=== PATIENT | female | born 1945 | race Caucasian/White ===

== ENCOUNTER 2017-05-28 19:42 | Observation (INO) | payer MEDICARE ==
[2017-05-28] MEDS ORDERED: MORPHINE SULFATE 4 MG/ML SYRINGE IV STA (20:20)
[2017-05-28] MEDS ORDERED: SODIUM CHLORIDE 0.9% 1,000 ML IV STA (20:20)
[2017-05-28] MEDS ORDERED: NITROGLYCERIN OINT 1 INCH/GM PACKET TOPICAL STA (20:20)
[2017-05-28] MEDS ORDERED: ONDANSETRON 4 MG/2 ML VIAL IVP STA (20:20)
[2017-05-28] MEDS ORDERED: HYDROmorphone 1 MG/ML 1 ML SYRINGE IVP STA (20:21)
[2017-05-28] MEDS ORDERED: MAG HYDROX/AL HYDROX/SIMETH 30 ML, HYOSCYAMINE ELIXIR 10 ML, CIMETIDINE HCL 300 MG, LID... PO STA ×4 (20:22)
[2017-05-28] MEDS ORDERED: PANTOPRAZOLE 40 MG/10 ML VIAL IVP STA (20:29)
[2017-05-28 20:30] LABS: Basophils # (A) 0.1 k/uL (0-0.2); Basophils % (A) 1 %; CH 29.4; CHCM 33.2; Eosinophils # (A) 0.1 k/uL (0-0.7); Eosinophils % (A) 2 %; HCT 40.3 % (34.0-46.0); HDW 2.37; HGB 13.6 gm/dL (11.4-16.0); Luc # (Auto) 0.16; Luc % (Auto) 3; Lymphocytes # (A) 0.8 k/uL (1.0-4.8); Lymphocytes % (A) 13 %; MCHC 33.8 g/dL (31.0-37.0); MCV 88.8 fL (80.0-100.0); Mean Platelet Volume 6.9; Monocytes # (A) 0.6 k/uL (0-1.0); Monocytes % (A) 10 %; Neutrophils # (A) 4.1 k/uL (1.3-7.7); Neutrophils % (A) 71 %; RBC 4.53 m/uL (3.80-5.40); RDW 14.1 % (11.5-15.5); WBC 5.7 k/uL (3.8-10.6); WBC (Perox) 5.87
[2017-05-28 20:40] LABS: Partial Thromboplastin Time 23.8 sec (22.0-30.0); Prothrombin Time 10.5 sec (9.0-12.0)
[2017-05-28 20:41] LABS: ALT 45 U/L (9-52); AST 37 U/L (14-36); Alkaline Phosphatase 80 U/L (38-126); Amylase 37 U/L (30-110); Anion Gap 10 mmol/L; Blood Urea Nitrogen 13 mg/dL (7-17); Calcium 9.3 mg/dL (8.4-10.2); Carbon Dioxide 24 mmol/L (22-30); Chloride 101 mmol/L (98-107); Glucose 108 mg/dL (74-99); Magnesium 1.6 mg/dL (1.6-2.3); Non-African American GFR(MDRD) >60 (>60 ml/min/1.73 sqM); Potassium 4.2 mmol/L (3.5-5.1); Sodium 135 mmol/L (137-145); Total Bilirubin 0.5 mg/dL (0.2-1.3); Total Protein 6.8 g/dL (6.3-8.2)
[2017-05-28] MEDS: ASPIRIN 81 MG PO STA ×2 (20:47→21:13)
[2017-05-28 20:52] LABS: Creatine Kinase 68 U/L (30-135)
--- NOTE | 2017-05-28 20:53 | XR ---
EXAMINATION TYPE: XR chest 2V DATE OF EXAM: 05/28/2017 COMPARISON: NONE HISTORY: Chest pain TECHNIQUE: Frontal and lateral views of the chest are obtained. FINDINGS: Heart and mediastinum are normal. There are small linear density at the left lung base. Th ere is no pleural effusion. There is no heart failure. Bony thorax is intact. IMPRESSION: Small area of subsegmental atelectasis at the left lung base.
--- NOTE | 2017-05-28 20:54 | XR ---
EXAMINATION TYPE: XR abdomen 2V DATE OF EXAM: 05/28/2017 COMPARISON: NONE HISTORY: Chest pain TECHNIQUE: 3 views FINDINGS: There is no sign of intestinal obstruction or pneumoperitoneum. Fecal pattern is normal. Th ere are clips from cholecystectomy. Lung bases are clear. There are no pathologic calcifications over the kidneys. IMPRESSION: Nonacute abdomen.
[2017-05-28 21:05] LABS: Creatine Kinase MB 0.5 ng/mL (0.0-2.4); Troponin I <0.012 ng/mL (0.000-0.034)
[2017-05-28] MEDS ORDERED: HEPARIN SODIUM,PORCINE 5,000 UNIT/ML 1 ML VIAL IV ONE (21:46)
--- NOTE | 2017-05-28 21:46 | ED ---
Chest Pain HPI - General Chief Complaint: Chest Pain Stated Complaint: chest pain Time Seen by Provider: 05/28/17 20:06 Source: patient Mode of arrival: wheelchair Limitations: no limitations - History of Present Illness Initial Comments: This 71-year-old white female presents with a complaint of some lower chest/ upper abdominal pain which is been present over the last 2 days. She describes it as a constant type of pain. It is a sharp pressure type pain. Is not pleuritic in nature. She does relate a degree of a history of some gas esophageal reflux but states that she has not been taking her Nexium for quite some time. She did start taking it again over the last 2 days. She denies any relief of symptoms. She denies any known history of coronary artery disease. She has a remote history of a negative stress test but has never had a heart catheterization. She denies any shortness of breath or diaphoresis. She is been able to eat without any worsening of symptoms. She denies any previous similar incidents. No other complaints or modifying factors. - Related Data Home Medications Medication Instructions Recorded Confirmed Aspirin EC [Ecotrin Low Dose] 81 mg PO DAILY 05/28/17 05/28/17 Multivitamins, Thera [Multivitamin 1 tab PO DAILY 05/28/17 05/28/17 (formulary)] Simvastatin [Zocor] 20 mg PO HS 05/28/17 05/28/17 Allergies Allergy/AdvReac Type Severity Reaction Status Date / Time No Known Allergies Allergy Verified 05/28/17 20:15 Review of Systems ROS Statement: Those systems with pertinent positive or pertinent negative responses have been documented in the HPI. ROS Other: All systems not noted in ROS Statement are negative. Past Medical History Past Medical History: GERD/Reflux, Hyperlipidemia Additional Past Medical History / Comment(s): retinal occlusion. History of Any Multi-Drug Resistant Organisms: None Reported Past Surgical History: Appendectomy, Cholecystectomy, Hysterectomy, Tonsillectomy Past Psychological History: No Psychological Hx Reported Smoking Status: Never smoker Past Alcohol Use History: None Reported Past Drug Use History: None Reported General Exam - General Exam Comments Initial Comments: GENERAL: The patient is well nourished and well hydrated. VITAL SIGNS: Heart rate, blood pressure, respiratory rate reviewed as recorded in nurse's notes. EYES: Pupils are round and reactive. Extraocular movements are intact. No conjunctival / lid redness or swelling. ENT: No external evidence of injury, swelling, or ecchymosis. Airway is patent. Throat is clear. NECK: Nontender. No swelling or evidence of injury. No subcutaneous emphysema. Trachea is midline. No thyroid mass. HEART: Regular rate and rhythm. Good peripheral pulses. LUNGS/CHEST: Breath sounds clear and equal bilaterally. No rales, rhonchi, or wheezes. No ecchymosis, subcutaneous emphysema, or tenderness. ABDOMEN: There is mild tenderness in the midepigastric region. No palpable masses or organomegaly. No peritoneal signs. No abdominal wall swelling or ecchymosis. EXTREMITIES: No extremity tenderness. Normal muscle tone and function. No thoracolumbar tenderness. NEUROLOGIC: Sensation is grossly intact. Cranial nerve exam reveals face is symmetrical, tongue is midline, speech is clear. SKIN: No abrasions or ecchymosis is noted. No induration or masses noted. PSYCHIATRIC: Alert and oriented. Appropriate behavior and judgment. Limitations: no limitations Course Vital Signs 05/28/17 05/28/17 19:44 21:18 Temperature 100.2 F H Pulse Rate 88 90 Respiratory 16 16 Rate Blood Pressure 143/69 137/67 O2 Sat by Pulse 98 94 L Oximetry Chest Pain MDM - MDM The patient was seen and examined. All diagnostics were reviewed. She is placed on a cardiac cath rn no ectopy is identified. The EKG shows a normal sinus rhythm at a rate of 88. There is no acute ST-T wave changes noted. The KS interval is 174, QRS duration is 72, and QTC intervals 442. The cardiac and abdominal laboratory analysis is also to within normal limits. The acute abdominal series and chest x-ray does not show any acute abnormalities. There may be some slight atelectasis noted in the left base as per radiology. She does receive an aspirin as well as some Nitropaste, morphine, and a GI cocktail. She is feeling significantly improved on recheck. The possibility of acute coronary syndrome she'll is possible. The possibility of gastritis/ peptic ulcer disease/gas esophageal reflux certainly is possible as well. Is felt as though she would require admission to the hospital to rule the possibility of acute coronary syndrome. She is agreeable. Case will be discussed with internal medicine shortly and she is noted to the hospital for further treatment. Disposition Clinical Impression: Chest pain, Unstable angina pectoris, Abdominal pain Disposition: ADMITTED IP TO THIS HOSP Condition: Good Time of Disposition: 21:46 Decision Date: 05/28/17 Decision Time: 21:46
[2017-05-28] MEDS ORDERED: HEPARIN SODIUM,PORCINE 25,000 UNIT in SODIUM CHLORIDE 0.9% 500 ML IV SCH (22:00)
[2017-05-29] MEDS: MORPHINE SULFATE 4 MG/ML SYRINGE IV PRN ×3 (00:02→08:37)
[2017-05-29] MEDS: NITROGLYCERIN OINT 1 INCH/GM PACKET TOPICAL SCH ×2 (00:07→08:37)
[2017-05-29 00:12] VITALS: RESP 18
[2017-05-29 00:38] VITALS: BMI 31.8
[2017-05-29 03:40] LABS: Cholesterol 142 mg/dL (<200); HDL Cholesterol 51 mg/dL (40-60)
[2017-05-29 03:49] LABS: Creatine Kinase 57 U/L (30-135)
[2017-05-29 04:02] LABS: Creatine Kinase MB 0.4 ng/mL (0.0-2.4); Troponin I <0.012 ng/mL (0.000-0.034)
[2017-05-29] MEDS ORDERED: ASPIRIN 325 MG TAB PO SCH (09:00)
[2017-05-29] MEDS ORDERED: PANTOPRAZOLE 40 MG/10 ML VIAL IVP SCH (09:00)
[2017-05-29 09:34] LABS: Creatine Kinase 49 U/L (30-135)
[2017-05-29 09:44] LABS: Creatine Kinase MB 0.4 ng/mL (0.0-2.4); Troponin I <0.012 ng/mL (0.000-0.034)
[2017-05-29] MEDS ORDERED: FAMOTIDINE 20 MG TAB PO SCH (10:45)
[2017-05-29 11:13] LABS: Amylase <30 U/L (30-110)
--- NOTE | 2017-05-29 11:54 | ECHOF ---
Referral Reason:cp MEASUREMENTS -------- HEIGHT: 162.6 cm WEIGHT: 83.5 kg BP: 120/54 RVIDd: 2.6 cm (< 3.3) IVSd: 1.2 cm (0.6 - 1.1) LVIDd: 3.7 cm (3.9 - 5.3) LVPWd: 1.2 cm (0.6 - 1.1) IVSs: 1.2 cm LVIDs: 3.3 cm LVPWs: 1.2 cm LA Diam: 3.1 cm (2.7 - 3.8) LAESV Index (A-L): 15.69 ml/m Ao Diam: 3.0 cm (2.0 - 3.7) AV Cusp: 1.7 cm (1.5 - 2.6) LA Diam: 3.3 cm (2.7 - 3.8) MV EXCURSION: 20.586 mm (> 18.000) MV EF SLOPE: 68 mm/s (70 - 150) EPSS: 0.4 cm MV E Nate: 0.45 m/s MV DecT: 265 ms MV A Nate: 0.72 m/s MV E/A Ratio: 0.63 AR PHT: 650 ms RAP: 5.00 mmHg RVSP: 21.80 mmHg FINDINGS -------- Sinus rhythm. This was a technically adequate study. The left ventricular size is normal. There is mild concentric left ventricular hypertrophy. Overa ll left ventricular systolic function is normal with, an EF between 55 - 60 %. The right ventricle is normal in size. Normal LA size by volume 22+/-6 ml/m2. The right atrial size is normal. There is mild aortic valve sclerosis. There is mild aortic regurgitation. The mitral valve leaflets are mildly thickened. Mild mitral annular calcification present. There is trace mitral regurgitation. Mild tricuspid regurgitation present. There is no evidence of pulmonary hypertension. The right v entricular systolic pressure, as measured by Doppler, is 21.80mmHg. There is no pulmonic regurgitation present. The aortic root size is normal. There is no pericardial effusion. CONCLUSIONS -------- 1. The left ventricular size is normal. 2. There is mild concentric left ventricular hypertrophy. 3. Overall left ventricular systolic function is normal with, an EF between 55 - 60 %. 4. There is mild aortic valve sclerosis. 5. There is mild aortic regurgitation. 6. The mitral valve leaflets are mildly thickened. 7. Mild mitral annular calcification present. 8. There is trace mitral regurgitation. 9. Mild tricuspid regurgitation present. 10. There is no evidence of pulmonary hypertension. 11. The right ventricular systolic pressure, as measured by Doppler, is 21.80mmHg. 12. There is no pulmonic regurgitation present. 13. The aortic root size is normal. 14. There is no pericardial effusion. CMO: Violeta Reyes RDCS
[2017-05-29] MEDS ORDERED: MULTIVITAMINS, THERA 1 EACH TAB PO SCH (12:00)
[2017-05-29 12:11] VITALS: BP 107/53; PULSE 83; TEMP 98.7
[2017-05-29] MEDS ORDERED: SUCRALFATE 1 GM TAB PO SCH (12:30)
[2017-05-29] MEDS ORDERED: ATORVASTATIN 10 MG TAB PO SCH (21:00)
--- NOTE | 2017-05-30 13:53 | HP ---
HISTORY AND PHYSICAL CHIEF COMPLAINT: Chest pain. HISTORY OF PRESENT ILLNESS: This is the first known admission of this 71-year-old, G2, P2, A0 white female. She started to develop "indigestion," which she was fairly sure was related to eating. She had some difficulty controlling it and came to the emergency room. Her evaluation there was negative, but it was felt that she should be observed to rule out cardiac issues. She has had a long-standing history of GERD. This chest pain was not associated with a pressure like sensation, squeezing, tightness, shortness of breath, nausea, diaphoresis, etc. There is no radiation of the pain. REVIEW OF SYSTEMS: Otherwise unremarkable. She has had no melena, diarrhea, hematochezia, hematemesis, jaundice, renal disease, diabetes, hypertension, etc. PAST MEDICAL HISTORY, FAMILY HISTORY, PERSONAL AND SOCIAL HISTORIES: Reveal that she is ALLERGIC TO ASPIRIN AND STATINS. Surgically she has had an appendectomy, cholecystectomy, tonsillectomy, hysterectomy. She has a negative family history for heart disease, and she does not smoke. PHYSICAL EXAMINATION: Blood pressure is 128/64 with a pulse of 73, respirations of 19. She is afebrile. In general she appeared to be well developed, well nourished, no acute distress. Skin color is normal. Skin is warm, dry. Lymph nodes not enlarged. Head, ears, eyes, nose, mouth, and throat were normal. Neck veins not distended. Thyroid not enlarged. Chest is clear. Cardiac exam is normal. Abdomen is soft, nontender except over the epigastrium where she was somewhat uncomfortable. Bowel sounds are present. Extremities normal. Neurological is intact. She is admitted to the hospital diagnoses: 1. Chest pain. 2. Gastroesophageal reflux disease. PLAN: 1. Bed rest. 2. IV fluids. 3. Serial EKGs and enzymes. MMODL / IJN: [id number] /
--- NOTE | 2017-05-30 16:23 | DS ---
DISCHARGE SUMMARY CHIEF COMPLAINT: Atypical chest pain. HISTORY OF PRESENT ILLNESS AND PHYSICAL EXAM: Details of this lady's history and physical can be found in the initial workup. LABORATORY STUDIES: While she was in a hospital she had laboratory studies, details which can be found in the laboratory section of her chart. COURSE IN HOSPITAL: After admission, she was placed in bedrest, started on intravenous fluids and she had serial EKGs and enzymes and they were normal. It was felt she could be discharged. She will follow up as an outpatient. FINAL DIAGNOSES: 1. Atypical chest pain. 2. Gastroesophageal reflux disease. OPERATIONS: None. CONSULTATION: None She is improved. MMODL / IJN: [id number] /
== END 2017-05-29 13:38 | disposition home or self-care (01) ==
LOC: EC 19:42 → 3OBS 21:50
PROVIDERS: ADMIT Family Medicine; ATTEND Family Medicine
DX: R07.89 Other chest pain (principal); K21.9 Gastro-esophageal reflux disease without esophagitis; E78.5 Hyperlipidemia, unspecified; Z79.82 Long term (current) use of aspirin; Z79.899 Other long term (current) drug therapy
CPT/HCPCS: 36415; 71020; 74020; 80053; 80061; 82150; 82550; 82553; 83690; 83735; 84484; 85025; 85049; 85610; 85730; 87040; 93005; 93306; 94760; 96361; 96365; 96366; 96375; 96376; 99285

== ENCOUNTER → 2017-06-06 | Outpatient (CLI) | payer MEDICARE ==
--- NOTE | 2017-06-06 16:03 | CT ---
EXAMINATION TYPE: CT abdomen pelvis wo/w con DATE OF EXAM: 06/06/2017 COMPARISON: NONE HISTORY: Right sided flank pain, abdominal pain CT DLP: 2293 mGycm CONTRAST: CT scan of the abdomen and pelvis is performed without and with Oral Contrast and without and with IV Contrast, patient injected with 100 mL of Omnipaque 300. FINDINGS: LUNG BASES-: No visible nodule. No infiltrate. LIVER/GB: Cholecystectomy clips are noted in place. 2 hepatic cysts are noted the largest within th e left hepatic lobe measures 1 cm. No space occupying hepatic lesion. Biliary tree is of normal luiza ivan. PANCREAS: No inflammation. No distinct mass. SPLEEN: No splenic enlargement. 8.5 mm splenic cyst noted. ADRENALS: No nodule. No thickening. KIDNEYS/BLADDER: No hydronephrosis. No nephrolithiasis. No disctinct renal mass. Urinary bladder g rossly unremarkable. BOWEL: Normal appendix. Normal bowel caliber. No inflammation. GENITAL ORGANS: No gross abnormality. LYMPH NODES: No greater than 1cm abdominal or pelvic lymph nodes are appreciated. AORTA: No significant abnormality. OSSEOUS STRUCTURES: Degenerative changes lumbar spine. OTHER: Fat-containing umbilical hernia noted. IMPRESSION: 1. No significant abnormality to account for the patient's symptoms.
== END | disposition home or self-care (01) ==
LOC: RADCTMAIN 13:41
PROVIDERS: ATTEND Internal Medicine
DX: R10.9 Unspecified abdominal pain (principal); R07.9 Chest pain, unspecified
CPT/HCPCS: 74178; Q9967

== ENCOUNTER → 2018-02-07 | Outpatient (CLI) | payer MEDICARE ==
--- NOTE | 2018-02-11 08:40 | MM ---
Reason for exam: screening (asymptomatic). Last mammogram was performed 1 year and 2 months ago. MG 3D Screen Mammo Imp/Cad Bilateral CC, MLO, and ID view(s) were taken. Prior study comparison: December 15, 2016, mammogram. November 05, 2015, mammogram. Bilateral breast prothesis. No significant changes when compared with prior studies. ASSESSMENT: Benign, BI-RAD 2 RECOMMENDATION: Routine screening mammogram of both breasts in 1 year.
== END | disposition home or self-care (01) ==
LOC: RADMAMWWP 09:21
PROVIDERS: ATTEND General Practice
DX: Z12.31 Encounter for screening mammogram for malignant neoplasm of breast (principal); Z98.82 Breast implant status
CPT/HCPCS: 77063; 77067

== ENCOUNTER → 2018-02-07 | Outpatient (CLI) | payer MEDICARE | END | disposition home or self-care (01) | LOC: LABWHC1 09:56 | PROVIDERS: ATTEND Dermatology | DX: L30.4 Erythema intertrigo (principal); L91.8 Other hypertrophic disorders of the skin; L82.0 Inflamed seborrheic keratosis; L02.821 Furuncle of head [any part, except face]; L65.9 Nonscarring hair loss, unspecified | CPT/HCPCS: 36415; 82306; 82652 ==

== ENCOUNTER → 2019-02-18 | Outpatient (CLI) | payer MEDICARE ==
--- NOTE | 2019-02-19 14:29 | MM ---
Reason for exam: screening (asymptomatic). Last mammogram was performed 1 year ago. Physical Findings: A clinical breast exam by your physician is recommended on an annual basis and results should be correlated with mammographic findings. MG 3D Screen Mammo Imp/Cad Bilateral CC, MLO, and ID view(s) were taken. Prior study comparison: February 07, 2018, bilateral MG 3d screen mammo imp/cad. December 15, 2016, mammogram. There are scattered fibroglandular densities. Bilateral prepectoral calcified silicone implants with contour defects/bulges. ASSESSMENT: Negative, BI-RAD 1 RECOMMENDATION: Routine screening mammogram of both breasts in 1 year. Calcified breast implants with budges. MRI could assess for rupture.
== END | disposition home or self-care (01) ==
LOC: RADMAMWWP 10:39
PROVIDERS: ATTEND General Practice
DX: Z12.31 Encounter for screening mammogram for malignant neoplasm of breast (principal); Z98.82 Breast implant status
CPT/HCPCS: 77063; 77067

== ENCOUNTER 2019-07-21 15:50 | Inpatient (IN) | payer MEDICARE ==
[2019-07-21] MEDS ORDERED: SODIUM CHLORIDE 0.9% 500 ML 500 ML IV STA (16:30)
--- NOTE | 2019-07-21 16:44 | ED ---
General Adult HPI - General Chief complaint: Neuro Symptoms/Deficit Stated complaint: Stroke Time Seen by Provider: 07/21/19 16:00 Source: patient, RN notes reviewed, old records reviewed Mode of arrival: wheelchair Limitations: no limitations - History of Present Illness Initial comments: This is a 73-year-old female who presents emergency Department complaining of some weakness in her right hand and inability to hold small objects. Patient states it started about 2:00 yesterday afternoon. Patient states she went to do some knitting was unable to hold her needles. Patient denies any headache patient denies any speech disturbance or visual disturbance. Patient denies any facial droop is noted. Patient denies chest pain palpitations difficulty breathing shortness of breath. Patient denies any lower extremity weakness or problems walking. Patient denies any left arm weakness or uncoordinated movement. Patient denies any injury. Patient denies any similar symptoms in the past. Patient denies any recent fever chills or cough. - Related Data Home Medications Medication Instructions Recorded Confirmed Simvastatin [Zocor] 20 mg PO HS 05/28/17 07/21/19 Levothyroxine Sodium [Synthroid] 25 mcg PO DAILY 07/21/19 07/21/19 Allergies Allergy/AdvReac Type Severity Reaction Status Date / Time No Known Allergies Allergy Verified 07/21/19 15:56 Review of Systems ROS Statement: Those systems with pertinent positive or pertinent negative responses have been documented in the HPI. ROS Other: All systems not noted in ROS Statement are negative. Past Medical History Past Medical History: GERD/Reflux, Hyperlipidemia Additional Past Medical History / Comment(s): retinal occlusion. History of Any Multi-Drug Resistant Organisms: None Reported Past Surgical History: Appendectomy, Cholecystectomy, Hysterectomy, Tonsillectomy Past Anesthesia/Blood Transfusion Reactions: No Reported Reaction Past Psychological History: No Psychological Hx Reported Smoking Status: Never smoker Past Alcohol Use History: None Reported Past Drug Use History: None Reported General Exam - General Exam Comments Initial Comments: GENERAL: Patient is well-developed and well-nourished. Patient is nontoxic and well- hydrated and is in mild distress. ENT: Neck is soft and supple. No significant lymphadenopathy is noted. Oropharynx is clear. Moist mucous membranes. Neck has full range of motion without álvaro citing any pain. EYES: The sclera were anicteric and conjunctiva were pink and moist. Extraocular movements were intact and pupils were equal round and reactive to light. Eyelids were unremarkable. PULMONARY: Unlabored respirations. Good breath sounds bilaterally. No audible rales rhonchi or wheezing was noted. CARDIOVASCULAR: There is a regular rate and rhythm without any murmurs gallops or rubs. ABDOMEN: Soft and nontender with normal bowel sounds. SKIN: Skin is clear with no lesions or rashes and otherwise unremarkable. NEUROLOGIC: Patient is alert and oriented x3. Cranial nerves II through XII are grossly intact. Motor and sensory are also intact. Normal speech, volume and content. Symmetrical smile. Patient's finger-nose testing of the right is off when compared to left. Patient also has finger drift on the right. MUSCULOSKELETAL: Normal extremities with adequate strength and full range of motion. LYMPHATICS: No significant lymphadenopathy is noted PSYCHIATRIC: Normal psychiatric evaluation. Limitations: no limitations Course Vital Signs 07/21/19 07/21/19 15:57 17:15 Temperature 97.9 F Pulse Rate 82 71 Respiratory 18 18 Rate Blood Pressure 152/79 132/74 O2 Sat by Pulse 100 100 Oximetry Medical Decision Making - Medical Decision Making EKG shows normal sinus rhythm at 73 bpm WI interval is 170 QRS is 70 QT interval 394 QTC is 434. Patient's EKG shows no ST segment elevation or depression or T wave abnormalities are noted. Chest x-ray shows no acute abnormality. I spoke with Dr. Alan he agreed to admit the patient admitted the patient and wrote admitting orders. I consult neurology CT shows a calcified mass in the right cerebellum consistent with meningioma - Lab Data Result diagrams: 07/21/19 16:15 07/21/19 16:15 Lab Results 07/21/19 07/21/19 07/21/19 Range/Units 16:15 16:15 16:15 WBC 6.6 (3.8-10.6) k/uL RBC 4.31 (3.80-5.40) m/uL Hgb 13.3 (11.4-16.0) gm/dL Hct 39.5 (34.0-46.0) % MCV 91.6 (80.0-100.0) fL MCH 30.9 (25.0-35.0) pg MCHC 33.7 (31.0-37.0) g/dL RDW 12.3 (11.5-15.5) % Plt Count 285 (150-450) k/uL Neutrophils % 64 % Lymphocytes % 26 % Monocytes % 6 % Eosinophils % 2 % Basophils % 1 % Neutrophils # 4.2 (1.3-7.7) k/uL Lymphocytes # 1.7 (1.0-4.8) k/uL Monocytes # 0.4 (0-1.0) k/uL Eosinophils # 0.1 (0-0.7) k/uL Basophils # 0.1 (0-0.2) k/uL PT 9.5 (9.0-12.0) sec INR 0.9 (<1.2) APTT 24.0 (22.0-30.0) sec Sodium 141 (137-145) mmol/L Potassium 4.3 (3.5-5.1) mmol/L Chloride 106 (98-107) mmol/L Carbon Dioxide 29 (22-30) mmol/L Anion Gap 6 mmol/L BUN 18 H (7-17) mg/dL Creatinine 0.80 (0.52-1.04) mg/dL Est GFR (CKD-EPI)AfAm 84 (>60 ml/min/1.73 sqM) Est GFR (CKD-EPI)NonAf 73 (>60 ml/min/1.73 sqM) Glucose 80 (74-99) mg/dL Calcium 9.3 (8.4-10.2) mg/dL Total Bilirubin 0.3 (0.2-1.3) mg/dL AST 26 (14-36) U/L ALT 19 (4-34) U/L Alkaline Phosphatase 71 (38-126) U/L Total Protein 7.1 (6.3-8.2) g/dL Albumin 4.2 (3.5-5.0) g/dL Disposition Clinical Impression: Cerebrovascular accident (CVA) Disposition: ADMITTED IP TO THIS HOSP Referrals: Marilin Funez MD [REFERRING] - 1-2 days Time of Disposition: 17:42
[2019-07-21 17:01] LABS: Basophils # (A) 0.1 k/uL (0-0.2); Basophils % (A) 1 %; Eosinophils # (A) 0.1 k/uL (0-0.7); Eosinophils % (A) 2 %; HCT 39.5 % (34.0-46.0); HGB 13.3 gm/dL (11.4-16.0); Lymphocytes # (A) 1.7 k/uL (1.0-4.8); Lymphocytes % (A) 26 %; MCH 30.9 pg (25.0-35.0); MCHC 33.7 g/dL (31.0-37.0); MCV 91.6 fL (80.0-100.0); Mean Platelet Volume 7.3; Monocytes # (A) 0.4 k/uL (0-1.0); Monocytes % (A) 6 %; Neutrophils # (A) 4.2 k/uL (1.3-7.7); Neutrophils % (A) 64 %; Platelet Count 285 k/uL (150-450); RBC 4.31 m/uL (3.80-5.40); RDW 12.3 % (11.5-15.5); WBC 6.6 k/uL (3.8-10.6)
[2019-07-21 17:12] LABS: INR 0.9 (<1.2); Prothrombin Time 9.5 sec (9.0-12.0)
[2019-07-21 17:14] LABS: Albumin 4.2 g/dL (3.5-5.0); Calcium 9.3 mg/dL (8.4-10.2); Potassium 4.3 mmol/L (3.5-5.1); Total Bilirubin 0.3 mg/dL (0.2-1.3); Total Protein 7.1 g/dL (6.3-8.2)
--- NOTE | 2019-07-21 17:26 | CT ---
EXAMINATION TYPE: CT brain wo con DATE OF EXAM: 07/21/2019 COMPARISON: None HISTORY: Left sided weakness. CT DLP: 1118.4 mGycm Automated exposure control for dose reduction was used. Ventricles have normal size. There is no midline shift. There is no sign of intracranial hemorrhage. There is a calcific extra-axial mass in the posterior fossa on the right side. Mass measures 2.5 cm a nd has broad attachment to the cerebellar tentorium on the inferior surface. There is no evidence of any significant surrounding edema. Calvarium is intact. IMPRESSION: Extra-axial calcifying mass arising from the right cerebellar tentorium consistent with a meningioma. No significant mass effect. There is mild cerebral atrophy appropriate for age.
--- NOTE | 2019-07-21 17:28 | XR ---
EXAMINATION TYPE: XR chest 2V DATE OF EXAM: 07/21/2019 COMPARISON: 05/28/2017 HISTORY: Altered mental status. Right-sided weakness TECHNIQUE: FINDINGS: Heart and mediastinum are normal. Lungs are clear. Diaphragm is normal. Bony thorax is inta ct. IMPRESSION: Normal chest. There is clearing of focal atelectasis left lower lung field compared to ol d exam.
[2019-07-21] MEDS ORDERED: ASPIRIN 325 MG TAB PO STA (17:46)
--- NOTE | 2019-07-21 20:51 | US ---
EXAMINATION TYPE: US carotid duplex BILAT DATE OF EXAM: 07/21/2019 COMPARISON: NONE CLINICAL HISTORY: Stenosis. Stenosis per order. Right-sided weakness x 2 days. EXAM MEASUREMENTS: RIGHT: Peak Systolic Velocity (PSV) cm/sec ----- Right CCA: 64.4 ----- Right ICA: 69.9 ----- Right ECA: 69.9 ICA/CCA ratio: 1.1 RIGHT: End Diastole cm/sec ----- Right CCA: 17.1 ----- Right ICA: 24.8 ----- Right ECA: 6.2 LEFT: Peak Systolic Velocity (PSV) cm/sec ----- Left CCA: 63.3 ----- Left ICA: 83.6 ----- Left ECA: 71.0 ICA/CCA ratio: 1.3 LEFT: End Diastole cm/sec ----- Left CCA: 17.1 ----- Left ICA: 28.0 ----- Left ECA: 10.6 VERTEBRALS (direction of flow): Right Vertebral: Antegrade Left Vertebral: Antegrade Rhythm: Normal Intimal thickening seen bilateral carotid arteries. Left ICA dives quickly posterior. No elevated arturo ocities obtained. *Incidental findings: Mixed area with vascularity seen right thyroid lobe measurin.4 x 1.0 x 0.8 cm. Mixed area with peripheral vascularity seen left thyroid lobe measurin.1 x 0.8 x 0.8 cm. IMPRESSION: There is antegrade flow in the vertebral arteries. The images and measurements suggest less than 20% stenosis in both internal carotid arteries. Bilateral sharply marginated thyroid nodules consistent w ith benign disease. Criteria for Assigning % of Stenosis / Diameter reduction (Estimation based on the indirect measurements of the internal carotid artery velocities (ICA PSV). 1. Normal (no stenosis)=ICA PSV < 125 cm/s: ratio < 2.0: ICA EDV<40 cm/s. 2. Less than 50% stenosis=ICA PSV < 125 cm/s: ratio < 2.0: ICA EDV<40 cm/s. 3. 50 to 69% stenosis=ICA PSV of 125 to 230 cm/s: ration 2.0 ? 4.0: ICA EDV 40-100 cm/s. 4. Greater than 70% stenosis to near occlusion= ICA PSV > 230 cm/s: ratio > 4.0: ICA EDV > 100 cm/s. 5. Near occlusion= ICA PSV velocities may be low or undetectable: variable ratio and ICA EDV. 6. Total occlusion=unable to detect flow.
[2019-07-22 07:05] LABS: Cholesterol 165 mg/dL (<200); HDL Cholesterol 60 mg/dL (40-60); LDL Cholesterol,Calculated 94 mg/dL (0-99); Triglycerides 56 mg/dL (<150)
[2019-07-22] MEDS: ASPIRIN 325 MG TAB PO SCH (09:05)
[2019-07-22] MEDS: LEVOTHYROXINE 25 MCG TAB PO SCH (09:50)
--- NOTE | 2019-07-22 13:17 | P.CNNES ---
History of Present Illness Consult date: 07/22/19 Requesting physician: Leonides Beltran Reason for Consult: CVA History of Present Illness: Patient is a 73-year-old right-handed female, who states that she was playing keyboard on 04/19/2020, when around 2:58 PM, she noticed that she couldn't use her right hand. She denied any problem with balance, slurred spe ech facial droop. She went to see her primary physician in the morning, who recommended her to go to ER and she arrived at [facility] at 3:50 PM. Patient was noted to have right arm weakness. Patient was not a candidate for TPA, as she came 24 hours after onset of symptoms. Patient underwent computed tomography scan of the head, which revealed extra-axial calcifying mask arising from the right cerebellar tentorium, consistent with a meningioma. No significant mass effect. There is mild cerebral atrophy appropriate for age. Chest x-ray was normal. There is clearing of focal atelectasis left lower lung field compared to old exam. EKG showed normal sinus rhythm. Carotid Doppler showed antegrade flow in the vertebral arteries. The images in measurement suggest less than 20% stenosis in both ICA. Antegrade flow in both vertebral arteries. Patient's blood test was reviewed. Liver panel is normal, total cholesterol is 165, LDL 94, HDL 60 and triglycerides 56. Patient used to take aspirin 81 mg daily for number of years. She just quit taking aspirin 2 months ago. She does take simvastatin for hyperlipidemia. Patient denies tobacco use. She has hypertension but no diabetes. Denies tobacco use. Denies any history of strokes TIAs. Patient does not know any previous history of brain tumor. Review of Systems Completely unremarkable except for right arm/hand weakness. Past Medical History Past Medical History: GERD/Reflux, Hyperlipidemia, Thyroid Disorder Additional Past Medical History / Comment(s): retinal occlusion. History of Any Multi-Drug Resistant Organisms: None Reported Past Surgical History: Appendectomy, Cholecystectomy, Hysterectomy, Tonsillectomy Past Anesthesia/Blood Transfusion Reactions: No Reported Reaction Past Psychological History: No Psychological Hx Reported Smoking Status: Never smoker Past Alcohol Use History: None Reported Additional Past Alcohol Use History / Comment(s): Patient has been a lifelong nonsmoker, no illicit drug use, occasional alcohol use. Past Drug Use History: None Reported - Past Family History Mother Family Medical History: Cancer Additional Family Medical History / Comment(s): Mother from Pancreatic Cancer Father Additional Family Medical History / Comment(s): Patient does not know her biological father. Brother(s) Additional Family Medical History / Comment(s): Patient has 2 brothers, one has history of CVA, second brother has no major medical problems. Sister(s) Additional Family Medical History / Comment(s): Patient has 1 sister with no major medical problems. Patient has one daughter with thoracic aortic aneurysm, patient has one son with no major medical problems. Medications and Allergies Home Medications Medication Instructions Recorded Confirmed Type Simvastatin [Zocor] 20 mg PO HS 05/28/17 07/21/19 History Levothyroxine Sodium [Synthroid] 25 mcg PO DAILY 07/21/19 07/21/19 History Allergies Allergy/AdvReac Type Severity Reaction Status Date / Time No Known Allergies Allergy Verified 07/21/19 15:56 Physical Examination - Vital Signs Vital Signs: Vital Signs Temp Pulse Pulse Resp BP BP Pulse Ox 07/22/19 11:36 97.1 F L 80 18 145/76 99 07/22/19 11:19 85 18 07/22/19 08:00 98.1 F 85 18 115/78 99 07/22/19 01:10 71 15 119/62 96 07/21/19 20:00 82 18 123/78 100 07/21/19 18:30 70 18 126/70 98 07/21/19 17:15 71 18 132/74 100 07/21/19 15:57 97.9 F 82 18 152/79 100 Intake and Output 07/21/19 07/22/19 07/22/19 22:59 06:59 14:59 Intake Total 720 Output Total 350 Balance 370 Intake: Intake, IV Titration 500 Amount Sodium Chloride 0.9% 500 500 ml 500 ml @ 999 mls/hr IV .Q31M STA Rx#:[id number] Oral 220 Output: Urine 350 Other: Voiding Method Toilet # Voids 1 Weight 72.575 kg On examination patient is an elderly female, very pleasant, in no acute distress. Patient is alert and awake oriented to time place and person. Speech and language functions are normal. Attention and concentration fund of knowledge is adequate. On cranial nerve examination pupils are round and reacting to light, visual swanson are full on confrontation, extra ocular muscles intact with no nystagmus. Face is symmetric and tongue protrudes slightly to the right. Palatal elevation and sensation normal. On muscle strength testing patient has right pronator drift. The strength is normal in the deltoid biceps and triceps. However her ripper operator is 4+, interossei 4-, finger extension also weak 4+ only on the right side. The strength is normal in the left leg and bilateral lower limbs. Sensations are equal to touch with no loss of sensation on double simultaneous dissemination. Reflexes are 1+ to 2 and plantars downgoing. Tone and bulk of muscles normal. Patient is ataxic for [id number] testing on the right. Rapid finger tapping is slow on the right. Gait deferred. No obvious bruit or murmur. Peripheral pulses present abdomen soft nontender. Results - Laboratory Findings CBC and BMP: 07/21/19 16:15 07/21/19 16:15 Abnormal Lab Findings: Abnormal Labs 07/21/19 16:15 BUN 18 H Assessment and Plan Assessment: * 73-year-old female admitted with right arm weakness and ataxia, probably due to acute ischemic stroke. * Abnormal brain CAT scan, with evidence of right posterior fossa tentorium based calcified mass, measuring 2.6 cm, suggestive of possible meningioma. Uncertain if this meningioma causing above symptoms versus CVA. * Hyperlipidemia * Borderline blood pressure. Plan: * Patient has been started on aspirin 325 mg daily. * Patient to be continued on Lipitor 10 mg. * Await MRI of the brain with and without contrast. * PT OT for right arm weakness. * May need neurosurgical consultation for right cerebellar tentorial-based mass. This could be performed outpatient, if an acute ischemic stroke is confirmed on the MRI. * We will check hemoglobin A1c and a 2-D echo to rule out embolic source. * Neurology will follow.
[2019-07-22] MEDS ORDERED: DIAZEPAM 5 MG TAB PO STA (13:57)
--- NOTE | 2019-07-22 15:21 | P.HPIM ---
History of Present Illness H&P Date: 07/22/19 Chief Complaint: Right hand weakness This is a 73-year-old female patient of Dr. Joshua Funez with past medical history of hyperlipidemia, hypothyroidism. Patient states yesterday around 2 in the afternoon she lost strength in her right hand. She felt like her right leg was a little off or felt unusual. She had right upper extremity weakness and slight drift to the right hand. She denies any involvement of her speech, no involvement of vision. Patient came into [facility] emergency center for evaluation. Carotid ultrasound reveals less than 20% stenosis in both internal carotid arteries. CAT scan of the brain showed calcifying mass arising from the right cerebellar tentorium consistent with meningioma. No significant mass effect. Mild cerebral atrophy appropriate for age. Chest x-ray was normal. Patient is being seen in the emergency center. Consult with neurology, MRI of the brain ordered. PT OT and speech therapy. Review of Systems All systems: negative Constitutional: Denies chills, Denies fatigue, Denies fever, Denies lethargy, Denies malaise, Denies poor appetite, Denies weight loss Eyes: denies blurred vision, denies diplopia, denies pain, denies loss of vision Ears, nose, mouth and throat: Denies headache, Denies nasal congestion, Denies nasal discharge, Denies sore throat Cardiovascular: Denies chest pain, Denies dyspnea on exertion, Denies leg edema, Denies shortness of breath, Denies syncope Respiratory: Denies cough, Denies cough with sputum, Denies dyspnea, Denies excessive sputum, Denies hemoptysis, Denies home oxygen, Denies wheezing Gastrointestinal: Denies abdominal pain, Denies diarrhea, Denies loss of appetite, Denies nausea, Denies vomiting Genitourinary: Denies dysuria, Denies hematuria, Denies urgency, Denies urinary frequency Musculoskeletal: Denies frequent falls, Denies muscle weakness, Denies myalgias, Denies neck pain Integumentary: Denies pruritus, Denies rash, Denies wounds Neurological: Reports weakness, Denies change in mentation, Denies change in speech, Denies gait dysfunction, Denies head injury, Denies headaches, Denies loss of vision, Denies memory loss, Denies numbness, Denies syncope Psychiatric: Denies anxiety, Denies depression Endocrine: Denies fatigue, Denies weight change Past Medical History Past Medical History: GERD/Reflux, Hyperlipidemia, Thyroid Disorder Additional Past Medical History / Comment(s): retinal occlusion. History of Any Multi-Drug Resistant Organisms: None Reported Past Surgical History: Appendectomy, Cholecystectomy, Hysterectomy, Tonsillectomy Past Anesthesia/Blood Transfusion Reactions: No Reported Reaction Past Psychological History: No Psychological Hx Reported Smoking Status: Never smoker Past Alcohol Use History: None Reported Additional Past Alcohol Use History / Comment(s): Patient has been a lifelong nonsmoker, no illicit drug use, occasional alcohol use. Past Drug Use History: None Reported - Past Family History Mother Family Medical History: Cancer Additional Family Medical History / Comment(s): Mother from Pancreatic Cancer Father Additional Family Medical History / Comment(s): Patient does not know her biological father. Brother(s) Additional Family Medical History / Comment(s): Patient has 2 brothers, one has history of CVA, second brother has no major medical problems. Sister(s) Additional Family Medical History / Comment(s): Patient has 1 sister with no major medical problems. Patient has one daughter with thoracic aortic aneurysm, patient has one son with no major medical problems. Medications and Allergies Home Medications Medication Instructions Recorded Confirmed Type Simvastatin [Zocor] 20 mg PO HS 05/28/17 07/21/19 History Levothyroxine Sodium [Synthroid] 25 mcg PO DAILY 07/21/19 07/21/19 History Allergies Allergy/AdvReac Type Severity Reaction Status Date / Time No Known Allergies Allergy Verified 07/21/19 15:56 Physical Exam Vitals: Vital Signs Temp Pulse Pulse Resp BP BP Pulse Ox 07/22/19 11:19 85 18 07/22/19 08:00 98.1 F 85 18 115/78 99 07/22/19 01:10 71 15 119/62 96 07/21/19 20:00 82 18 123/78 100 07/21/19 18:30 70 18 126/70 98 07/21/19 17:15 71 18 132/74 100 07/21/19 15:57 97.9 F 82 18 152/79 100 Intake and Output 07/21/19 07/22/19 07/22/19 22:59 06:59 14:59 Intake Total 720 Output Total 350 Balance 370 Intake: Intake, IV Titration 500 Amount Sodium Chloride 0.9% 500 500 ml 500 ml @ 999 mls/hr IV .Q31M STA Rx#:[id number] Oral 220 Output: Urine 350 Other: Voiding Method Toilet # Voids 1 Weight 72.575 kg Gen: This is a 73-year-old female. Patient seen in the ER and appears to be in no acute distress. HEENT: Head is atraumatic, normocephalic. Pupils equal, round. Sclerae is anicteric. NECK: Supple. No JVD. No lymphadenopathy. No thyromegaly. LUNGS: Clear to auscultation. No wheezes or rhonchi. No intercostal retractions. HEART: Regular rate and rhythm. No murmur. ABDOMEN: Soft. Bowel sounds are present. No masses. No tenderness. EXTREMITIES: No pedal edema. No calf tenderness. NEUROLOGICAL: Patient is awake, alert and oriented x3. Cranial nerves 2 through 12 are grossly intact. Weakness noted to the right hand. Slight drift of the right hand. Results CBC & Chem 7: 07/21/19 16:15 07/21/19 16:15 Labs: Abnormal Lab Results - Last 24 Hours (Table) 07/21/19 Range/Units 16:15 BUN 18 H (7-17) mg/dL Thrombosis Risk Factor Assmnt - DVT/VTE Prophylaxis DVT/VTE Prophylaxis: Pharmacologic Prophylaxis ordered - Choose All That Apply Any of the Below Risk Factors Present?: No Other Risk Factors: Yes Each Risk Factor Represents 2 Points: Age 61-74 years Other congenital or acquired thrombophilia - If yes, enter type in comment: No Thrombosis Risk Factor Assessment Total Risk Factor Score: 2 Thrombosis Risk Factor Assessment Level: Low Risk Assessment and Plan Plan: 1. Possible acute ischemic stroke. Neurology consult. MRI of the brain with and without contrast. Patient was started on aspirin 325 mg daily, Lipitor 10 mg daily, echocardiogram, PT, OT, speech therapy evaluations. 2. Possible meningioma on CAT scan. Patient will need to have this managed as an outpatient. 3. Hyperlipidemia. Lipitor 10 mg. 4. Elevated blood pressure, monitor. Patient is not currently on medication. 5. Hypothyroidism. Continue levothyroxine 25 g daily. 6. Possible thyroid nodule seen on carotid ultrasound. 7. DVT prophylaxis. Early ambulation. 8. GI prophylaxis. Pepcid. Patient will be admitted to the hospital for a minimum of 2 night stay. Discharge plan: He turned home, possible home care Impression and plan of care have been directed as dictated by the signing physician. Tressa Hall nurse practitioner acting as scribe for signing physician.
--- NOTE | 2019-07-22 15:34 | MR ---
EXAMINATION TYPE: MR brain wo/w con DATE OF EXAM: 07/22/2019 COMPARISON: CT brain 07/21/2019 HISTORY: CVA, right UE weakness TECHNIQUE: Multiplanar, multisequence images of the brain and brainstem is performed without and with IV contras t, utilizing 7 mL intravenous Gadavist . FINDINGS: Diffusion weighted images demonstrate restricted diffusion in the left centrum semiovale ov marta, corresponding intensity present on inversion recovery T2-weighted sequences. There is no extra- axial fluid collection. There is confluent and scattered hyperintensity within the periventricular, pericallosal, subcortical white matter. The ventricular system and cisternal spaces are normal in siz e and appearance. The brain volume is age appropriate. Midline structures demonstrate normal morphology. Just cephalad to the right cerebellopontine angle t here is corresponding focus to the mass seen on CT measuring 2.4 x 2.2 x 2.7 cm extending from the te ntorium inferiorly, there is local mass effect with mixed increased and low signal on inversion recov carmen T2-weighted sequences, isointense on T1, homogenous enhancement following contrast administration . The craniocervical junction appears within normal limits. The dural venous sinuses appear patent. T he visualized sinuses are remarkable for mild inflammatory change left maxillary sinus and ethmoid ai r cells, and the globes are intact. IMPRESSION: Subacute infarct left centrum semiovale. Probable meningioma as described with local mass effect. Nonspecific demyelination may be related to chronic small vessel ischemia. Mild sinus diseas e.
[2019-07-22] MEDS ORDERED: ATORVASTATIN 10 MG TAB PO SCH (21:00)
[2019-07-22 23:47] LABS: Hemoglobin A1C 5.7 % (4.0-6.0)
[2019-07-23] MEDS: LEVOTHYROXINE 25 MCG TAB PO SCH (06:02)
[2019-07-23 07:50] VITALS: TEMP 97.6
[2019-07-23] MEDS: ASPIRIN 325 MG TAB PO SCH (08:02)
[2019-07-23 11:12] VITALS: BP 112/52; PULSE 81; RESP 16
--- NOTE | 2019-07-23 15:00 | ECHOF ---
Referral Reason:Possible CVA MEASUREMENTS -------- HEIGHT: 162.6 cm WEIGHT: 72.6 kg BP: 145/76 RVIDd: 3.1 cm (< 3.3) IVSd: 1.1 cm (0.6 - 1.1) LVIDd: 3.5 cm (3.9 - 5.3) LVPWd: 1.0 cm (0.6 - 1.1) IVSs: 1.5 cm LVIDs: 2.5 cm LVPWs: 1.6 cm LA Diam: 3.1 cm (2.7 - 3.8) LAESV Index (A-L): 22.06 ml/m Ao Diam: 2.8 cm (2.0 - 3.7) AV Cusp: 2.0 cm (1.5 - 2.6) MV EXCURSION: 10.072 mm (> 18.000) MV EF SLOPE: 29 mm/s (70 - 150) EPSS: 0.7 cm MV E Nate: 0.62 m/s MV DecT: 283 ms MV A Nate: 0.93 m/s MV E/A Ratio: 0.67 AR PHT: 795 ms RAP: 5.00 mmHg RVSP: 28.37 mmHg TAPSE: 18.65 mm FINDINGS -------- Sinus rhythm. This was a technically good study. The left ventricular size is normal. Left ventricular wall thickness is normal. Overall left vent ricular systolic function is normal with, an EF between 60 - 65 %. The right ventricle is normal in size. Normal LA size by volume 22+/-6 ml/m2. The right atrium is normal in size. Contrast study was performed with 2 iv injections of 8 ccs of agitated normal saline, at rest, and wi th cough. Interatrial and interventricular septum intact.No rt to lt shunt noted. There is mild aortic valve sclerosis. There is mild aortic regurgitation. The mitral valve is normal. Mild tricuspid regurgitation present. Right ventricular systolic pressure is normal at < 35 mmHg. Trace/mild (physiologic) pulmonic regurgitation. The aortic root size is normal. Normal inferior vena cava with normal inspiratory collapse consistent with estimated right atrial pre ssure of 5 mmHg. There is no pericardial effusion. CONCLUSIONS -------- 1. Sinus rhythm. 2. This was a technically good study. 3. The left ventricular size is normal. 4. Left ventricular wall thickness is normal. 5. Overall left ventricular systolic function is normal with, an EF between 60 - 65 %. 6. The right ventricle is normal in size. 7. Normal LA size by volume 22+/-6 ml/m2. 8. The right atrium is normal in size. 9. Contrast study was performed with 2 iv injections of 8 ccs of agitated normal saline, at rest, and with cough. 10. Interatrial and interventricular septum intact. 11. There is mild aortic valve sclerosis. 12. There is mild aortic regurgitation. 13. The mitral valve is normal. 14. Mild tricuspid regurgitation present. 15. Right ventricular systolic pressure is normal at < 35 mmHg. 16. Trace/mild (physiologic) pulmonic regurgitation. 17. The aortic root size is normal. 18. Normal inferior vena cava with normal inspiratory collapse consistent with estimated right atrial pressure of 5 mmHg. 19. There is no pericardial effusion. OSD CLERK: MARÍA Montgomery
--- NOTE | 2019-07-23 15:02 | P.DS ---
Providers Date of admission: 07/21/19 18:00 Expected date of discharge: 07/23/19 Attending physician: Krysta Ochoa Consults: 07/21/19 17:46 Consult Physician Routine Consulting Provider: Elise López Consult Reason/Comments: CVA Do you want consulting provider notified?: Yes Primary care physician: Joshua Funez [facility] Course: This is a 73-year-old female patient of Dr. Joshua Funez with past medical history of hyperlipidemia, hypothyroidism. Patient states yesterday around 2 in the afternoon she lost strength in her right hand. She felt like her right leg was a little off or felt unusual. She had right upper extremity weakness and slight drift to the right hand. She denies any involvement of her speech, no involvement of vision. Patient came into [facility] emergency center for evaluation. Carotid ultrasound reveals less than 20% stenosis in both internal carotid arteries. CAT scan of the brain showed calcifying mass arising from the right cerebellar tentorium consistent with meningioma. No significant mass effect. Mild cerebral atrophy appropriate for age. Chest x-ray was normal. Patient is being seen in the emergency center. Consult with neurology, MRI of the brain ordered. PT OT and speech therapy. 07/23: Patient states that she continues to have some weakness to the right hand but it is improved from yesterday. Strength is improved from yesterday. MRI of the brain revealed subacute infarct left central semiovale. Probable meningioma with local mass effect. Nonspecific demyelination may be related to chronic small vessel ischemia. Mild sinus disease. Echocardiogram with EF 60-65% and mild aortic regurgitation. Outpatient PT and OT will be arranged. Patient is agreeable to follow up with outpatient neurology and also cardiology follow-up for cryptogenic stroke workup. Patient will be discharged home today in stable condition.. Discharge diagnoses: 1. Acute ischemic stroke. 2. Possible meningioma on CAT scan. Patient will need to have this managed as an outpatient. 3. Hyperlipidemia. 4. Elevated blood pressure, monitor. 5. Hypothyroidism. 6. Possible thyroid nodule seen on carotid ultrasound. Discharge plan: home Impression and plan of care have been directed as dictated by the signing physician. Tressa Hall nurse practitioner acting as scribe for signing physician. Patient Condition at Discharge: Good Plan - Discharge Summary Discharge Rx Participant: No New Discharge Prescriptions: New Aspirin 325 mg PO DAILY tab Atorvastatin [Lipitor] 40 mg PO HS #30 tab Continue Levothyroxine Sodium [Synthroid] 25 mcg PO DAILY Discontinued Simvastatin [Zocor] 20 mg PO HS Discharge Medication List Levothyroxine Sodium [Synthroid] 25 mcg PO DAILY 07/21/19 [History] Aspirin 325 mg PO DAILY tab 07/23/19 [Rx] Atorvastatin [Lipitor] 40 mg PO HS #30 tab 07/23/19 [Rx] Follow up Appointment(s)/Referral(s): Evans Lin MD [STAFF PHYSICIAN] - 1 Week Joshua Funez MD [Primary Care Provider] - 1 Week [facility] [Provider Group] - 1 Week (cryptogenic stroke workup) Activity/Diet/Wound Care/Special Instructions: OP PT and OT, right hemiparesis Discharge Disposition: HOME SELF-CARE
--- NOTE | 2019-07-23 15:50 | P.PN ---
Subjective Progress Note Date: 07/23/19 Patient states that her right arm is feeling better. Her gait has also improved. Denies headache, denies any new neurological symptoms. Objective - Vital Signs Vital signs: Vital Signs Temp 97.6 F 07/23/19 11:12 Pulse 81 07/23/19 11:12 Resp 16 07/23/19 11:12 BP 112/52 07/23/19 11:12 Pulse Ox 95 07/23/19 11:12 Intake & Output 07/22/19 07/23/19 07/23/19 18:59 06:59 18:59 Intake Total 980 240 480 Output Total 350 400 Balance 630 240 80 Weight 73.2 kg 72.2 kg Intake: Intake, IV Titration 500 Amount Sodium Chloride 0.9% 500 500 ml 500 ml @ 999 mls/hr IV .Q31M STA Rx#:[id number] Oral 480 240 480 Output: Urine 350 400 Other: Voiding Method Toilet # Voids 1 2 # Bowel Movements 0 - Exam On examination patient's mental status, speech and language functions are normal. Attention, concentration and fund of knowledge is adequate. Cranial nerves are all normal. No facial droop. Tongue protrudes to the midline. On muscle strength testing patient has mild right pronator drift. The strength is normal in the deltoids, biceps and triceps. Her internet application developer is 5-on the right as compared to the left, which is 5. Strength in the lower extremities is normal. Sensations are equal. Patient has mild dysmetria for [id number] testing on the right. Tone and bulk of muscles normal. Patient appeared fairly steady while walking. - Labs CBC & Chem 7: 07/21/19 16:15 07/21/19 16:15 Assessment and Plan Assessment: * 73-year-old female admitted with right arm weakness and ataxia, due to acute ischemic stroke involving the left centrum semiovale, likely from small vessel disease. * Right cerebellopontine angle, tentorium based mass, measuring 2.6 cm, most likely a meningioma. Asymptomatic. * Hyperlipidemia * Borderline blood pressure. Plan: * Continue aspirin 325 mg daily, at least for the first 3 months, then patient can take 81 mg aspirin indefinitely. * Patient's Lipitor increased to 40 mg. * MRI of the brain with and without contrast confirmed subacute infarct left ce ntrum semiovale. Likely from small vessel disease. Also revealed meningioma. * Outpatient PT OT for right arm weakness. * Suggest outpatient neurosurgical consultation for meningioma, which is asympto matic at this time. * Hemoglobin A1c 5.7 normal. Lipids with cholesterol 165, LDL 94, HDL 60 and t riglycerides 56. * 2-D echo showed normal sinus rhythm, EF 60-65%. Normal left atrial size. No evidence of interatrial or interventricular shunt on bubble study. Mild aortic valve sclerosis and regurgitation. No evidence of embolic source. * Follow up with a neurologist locally in the area in 2-3 weeks. Suggest patient no driving, or climbing ladders, until cleared by neurology.
[2019-07-23] MEDS ORDERED: ATORVASTATIN 40 MG TAB PO SCH (21:00)
== END 2019-07-23 15:43 | disposition home or self-care (01) | DRG 66 ==
LOC: EC 15:50 → 3SCARD 18:00
PROVIDERS: ADMIT Family Medicine; ATTEND Family Medicine
DX: I63.9 Cerebral infarction, unspecified (principal); D32.0 Benign neoplasm of cerebral meninges; G83.21 Monoplegia of upper limb affecting right dominant side; R40.2363 Coma scale, best motor response, obeys commands, at hospital admission; R40.2143 Coma scale, eyes open, spontaneous, at hospital admission; R40.2253 Coma scale, best verbal response, oriented, at hospital admission; R29.702 NIHSS score 2; I10 Essential (primary) hypertension; I35.8 Other nonrheumatic aortic valve disorders; E78.5 Hyperlipidemia, unspecified; E03.9 Hypothyroidism, unspecified; K21.9 Gastro-esophageal reflux disease without esophagitis; Z79.890 Hormone replacement therapy; Z79.899 Other long term (current) drug therapy; Z86.69 Personal history of other diseases of the nervous system and sense organs; Z90.49 Acquired absence of other specified parts of digestive tract; Z90.710 Acquired absence of both cervix and uterus; Z98.890 Other specified postprocedural states; Z80.0 Family history of malignant neoplasm of digestive organs; Z82.3 Family history of stroke; Z82.49 Family history of ischemic heart disease and other diseases of the circulatory system
CPT/HCPCS: 36415; 70450; 70553; 71046; 80053; 80061; 83036; 84484; 85025; 85610; 85730; 93005; 93306; 93880; 96360; 99285

== ENCOUNTER → 2020-03-25 | Outpatient (CLI) | payer MEDICARE ==
--- NOTE | 2020-03-29 09:14 | MM ---
Reason for exam: screening (asymptomatic). Last mammogram was performed 1 year and 1 month ago. History: Silicone gel implants in both breasts, 1989. Physical Findings: A clinical breast exam by your physician is recommended on an annual basis and results should be correlated with mammographic findings. MG 3D Screen Mammo Imp/Cad Bilateral CC and MLO view(s) were taken. Prior study comparison: February 18, 2019, bilateral MG 3d screen mammo imp/cad. February 07, 2018, bilateral MG 3d screen mammo imp/cad. There are scattered fibroglandular densities. Bilateral breast prothesis. No significant changes when compared with prior studies. ASSESSMENT: Benign, BI-RAD 2 RECOMMENDATION: Routine screening mammogram of both breasts in 1 year.
== END | disposition home or self-care (01) ==
LOC: RADMAMWWP 09:52
PROVIDERS: ATTEND Family Medicine
DX: Z12.31 Encounter for screening mammogram for malignant neoplasm of breast (principal)
CPT/HCPCS: 77063; 77067

== ENCOUNTER → 2020-11-17 | Outpatient (CLI) | payer MEDICARE ==
--- NOTE | 2020-11-17 13:07 | MR ---
EXAMINATION TYPE: MR brain wo/w con DATE OF EXAM: 11/17/2020 12:53 PM COMPARISON: 11/17/2020 HISTORY: Hx of stroke/meningioma, f/u CONTRAST: Patient received 8 mL intravenous Gadavist gadolinium contrast. Multiplanar and multispin-echo imaging of the brain was performed . Pre and post contrast enhanced i mages are obtained. The ventricles, basal cisterns and sulci overlying the cerebral convexities are mildly enlarged. There is evidence of mild periventricular white matter ischemic demyelination. Remote deep white matter insults are also noted. No acute edema is seen on diffusion weighted imaging. Again noted is a densely enhancing mass just cephalad to the right cerebellopontine angle cistern whi ch demonstrates interval enlargement and currently measures 2.7 x 2.4 x 2.5 cm versus prior measureme nt of 2.1 x 2.1 x 2.2 cm. Mass effect is noted. There is narrowing of the fourth ventricle. Acute intracranial hemorrhage or extra-axial collection is not evident. No enhancing lesions are seen. The paranasal sinuses and mastoid air cells are well-aerated. IMPRESSION: 1. Findings suggest interval enlargement of meningioma which is situated just cephalad to the right c erebellopontine cistern. Mildly increased mass effect seen. No additional enhancing masses noted. 2. Age-related atrophic and chronic small vessel ischemic change. No acute intracranial process at this time.
== END | disposition home or self-care (01) ==
LOC: RADMRIMAIN 11:56
PROVIDERS: ATTEND Psychiatry & Neurology Neurology
DX: I67.82 Cerebral ischemia (principal); Z86.73 Personal history of transient ischemic attack (TIA), and cerebral infarction without residual deficits
CPT/HCPCS: 70553; A9585

== ENCOUNTER → 2021-11-08 | Outpatient (CLI) | payer MEDICARE ==
--- NOTE | 2021-11-09 11:33 | MM ---
Reason for exam: screening (asymptomatic). Last mammogram was performed 1 year and 8 months ago. History: Patient is postmenopausal and history of other cancer. Pre-pectoral silicone gel implants in both breasts, 1989. Excisional biopsy of the left breast, 1976. Physical Findings: A clinical breast exam by your physician is recommended on an annual basis and results should be correlated with mammographic findings. MG 3D Screen Mammo Imp/Cad Bilateral CC, MLO, and ID view(s) were taken. Prior study comparison: March 25, 2020, bilateral MG 3d screen mammo imp/cad. February 18, 2019, bilateral MG 3d screen mammo imp/cad. There are scattered fibroglandular densities. Bilateral silicone implants. No significant changes when compared with prior studies. ASSESSMENT: Benign, BI-RAD 2 RECOMMENDATION: Routine screening mammogram of both breasts.
== END | disposition home or self-care (01) ==
LOC: RADMAMWWP 11:07
PROVIDERS: ATTEND Family Medicine
DX: Z12.31 Encounter for screening mammogram for malignant neoplasm of breast (principal); Z78.0 Asymptomatic menopausal state
CPT/HCPCS: 77063; 77067

== ENCOUNTER 2022-12-04 13:35 | Emergency (ER) | payer MEDICARE ==
[2022-12-04 13:43] VITALS: RESP 18
[2022-12-04] MEDS ORDERED: SODIUM CHLORIDE 0.9% 500 ML 500 ML IV STA (13:45)
--- NOTE | 2022-12-04 13:49 | ED ---
General Adult HPI - General Chief complaint: Allergic Reaction Stated complaint: ALLERGIC REACTION Time Seen by Provider: 12/04/22 13:35 Source: patient, EMS, RN notes reviewed, old records reviewed Mode of arrival: EMS Limitations: no limitations - History of Present Illness Initial comments: This is a 77-year-old female who presents emergency department after having taking 2 of Motrin and became itchy all over her tongue swelled up and according to family she passed out. Patient states a couple weeks ago she took some Motrin and her arms became already but nothing is nearly as bad as the reaction she had today. When EMS arrived they did give her Solu-Medrol and epinephrine. Patient states she only took 75 mg of Benadryl prior to EMS arriving. Patient states currently she just feels cold and the itching is gone down but certainly the tongue feels much better and she states she never had any difficulty breathing or swallowing. - Related Data Home Medications Medication Instructions Recorded Confirmed Levothyroxine Sodium [Synthroid] 25 mcg PO DAILY 07/21/19 07/21/19 Previous Rx's Medication Instructions Recorded Aspirin 325 mg PO DAILY tab 07/23/19 Atorvastatin [Lipitor] 40 mg PO HS #30 tab 07/23/19 EPINEPHrine (Auto Inject) [Epipen] 0.3 mg IM ONCE PRN #2 each 12/04/22 predniSONE [Deltasone] 40 mg PO DAILY #8 tab 12/04/22 Allergies Allergy/AdvReac Type Severity Reaction Status Date / Time ibuprofen Allergy Swelling Verified 12/04/22 13:43 Review of Systems ROS Statement: Those systems with pertinent positive or pertinent negative responses have been documented in the HPI. ROS Other: All systems not noted in ROS Statement are negative. Past Medical History Past Medical History: GERD/Reflux, Hyperlipidemia, Thyroid Disorder Additional Past Medical History / Comment(s): retinal occlusion. History of Any Multi-Drug Resistant Organisms: None Reported Past Surgical History: Appendectomy, Cholecystectomy, Hysterectomy, Tonsil lectomy Past Anesthesia/Blood Transfusion Reactions: No Reported Reaction Past Psychological History: No Psychological Hx Reported Smoking Status: Never smoker Past Alcohol Use History: None Reported Past Drug Use History: None Reported - Past Family History Mother Family Medical History: Cancer Additional Family Medical History / Comment(s): Mother from Pancreatic Cancer Father Additional Family Medical History / Comment(s): Patient does not know her bi ological father. Brother(s) Additional Family Medical History / Comment(s): Patient has 2 brothers, one has history of CVA, second brother has no major medical problems. Sister(s) Additional Family Medical History / Comment(s): Patient has 1 sister with no major medical problems. Patient has one daughter with thoracic aortic aneurysm, patient has one son with no major medical problems. General Exam - General Exam Comments Initial Comments: GENERAL: Patient is well-developed and well-nourished. Patient is nontoxic and well- hydrated and is in mild distress. ENT: Neck is soft and supple. No significant lymphadenopathy is noted. Oropharynx is clear. Moist mucous membranes. Neck has full range of motion without eliciting any pain. EYES: The sclera were anicteric and conjunctiva were pink and moist. Extraocular movements were intact and pupils were equal round and reactive to light. Eyelids were unremarkable. PULMONARY: Unlabored respirations. Good breath sounds bilaterally. No audible rales rhonchi or wheezing was noted. CARDIOVASCULAR: There is a regular rate and rhythm without any murmurs gallops or rubs. ABDOMEN: Soft and nontender with normal bowel sounds. SKIN: Skin is clear with no lesions or rashes and otherwise unremarkable. NEUROLOGIC: Patient is alert and oriented x3. Cranial nerves II through XII are grossly intact. Motor and sensory are also intact. Normal speech, volume and content. Symmetrical smile. MUSCULOSKELETAL: Normal extremities with adequate strength and full range of motion. LYMPHATICS: No significant lymphadenopathy is noted PSYCHIATRIC: Normal psychiatric evaluation. Limitations: no limitations Course Vital Signs 12/04/22 13:37 Temperature 96.9 F L Pulse Rate 97 Respiratory 18 Rate Blood Pressure 142/85 O2 Sat by Pulse 98 Oximetry Medical Decision Making - Medical Decision Making EKG was interpreted by myself that shows a sinus rhythm at 90 bpm [place] interval 175 QRS is 86 QT interval 373 QTC is 420. Patient's EKG shows no ST segment elevation Was pt. sent in by a medical professional or institution (JOSE JUAN Clements, SEPTIC TANK SERVICE TECHNICIAN, urgent care, hospital, or skilled nursing...) When possible be specific @ -No Did you speak to anyone other than the patient for history (EMS, parent, family, police, friend...)? What history was obtained from this source @ -EMS gave a lot of the history because some time the patient was unconscious Did you review nursing and triage notes (agree or disagree)? Why? @ -I reviewed and agree with nursing and triage notes Were old charts reviewed (outside hosp., previous admission, EMS record, old EKG, old radiological studies, urgent care reports/EKG's, skilled nursing records)? Report findings @ -No old charts were reviewed Differential Diagnosis (chest pain, altered mental status, abdominal pain women, abdominal pain men, vaginal bleeding, weakness, fever, dyspnea, syncope, headache, dizziness, GI bleed, back pain, seizure, CVA, palpatations, mental health, musculoskeletal)? @ -Differential Syncope: Valvular disease, hypertrophic cardiomyopathy, anaphylactic reaction, pulmonary embolism, tamponade, tachycardia, bradycardia, NH, hypovolemia, hemorrhage, dissection, anemia, intracranial hemorrhage, seizure, hypoglycemia, carbon monoxide poisoning, this is not meant to be an all-inclusive list. EKG interpreted by me (3pts min.). @ -As above X-rays interpreted by me (1pt min.). @ -Chest x-ray showed no acute abnormality CT interpreted by me (1pt min.). @ -None done U/S interpreted by me (1pt. min.). @ -None done What testing was considered but not performed or refused? (CT, X-rays, U/S, labs)? Why? @ -None What meds were considered but not given or refused? Why? @ -None Did you discuss the management of the patient with other professionals (professionals i.e. , PA, SEPTIC TANK SERVICE TECHNICIAN, lab, RT, psych nurse, social services specialist, rigging foreman, teacher, workplace rehabilitation officer, medical case worker)? Give summary @ -No Was smoking cessation discussed for >3mins.? @ -No Was critical care preformed (if so, how long)? @ -35 minutes Were there social determinants of health that impacted care today? How? (Homelessness, low income, unemployed, alcoholism, drug addiction, transportation, low edu. Level, literacy, decrease access to med. care, long term, rehab)? @ -No Was there de-escalation of care discussed even if they declined (Discuss DNR or withdrawal of care, Hospice)? DNR status @ -No What co-morbidities impacted this encounter? (DM, HTN, Smoking, COPD, CAD, Cancer, CVA, ARF, Chemo, Hep., AIDS, mental health diagnosis, sleep apnea, morbid obesity)? @ -None Was patient admitted / discharged? Hospital course, mention meds given and route, prescriptions, significant lab abnormalities, going to OR and other pertinent info. @ -Patient had received epinephrine in the field along with Solu-Medrol. I gave the patient 25 mg of Benadryl and I went back and reexamined the patient she was doing considerably better she was having no difficulty breathing or difficulty swallowing and at this point, I felt the patient could go home safely with her . Undiagnosed new problem with uncertain prognosis? @ -No Drug Therapy requiring intensive monitoring for toxicity (Heparin, Nitro, Insulin, Cardizem)? @ -No Were any procedures done? @ -No Diagnosis/symptom? @ -Anaphylactic reaction Acute, or Chronic, or Acute on Chronic? @ -Acute Uncomplicated (without systemic symptoms) or Complicated (systemic symptoms)? @ -Complicated Side effects of treatment? @ -No Exacerbation, Progression, or Severe Exacerbation? @ -[No] Poses a threat to life or bodily function? How? (Chest pain, USA, NH, pneumonia, PE, COPD, DKA, ARF, appy, cholecystitis, CVA, Diverticulitis, Homicidal, Suicidal, threat to staff... and all critical care pts) @ -Yes This could lead to hypoxia and end organ dysfunction - Lab Data Result diagrams: 12/04/22 14:14 12/04/22 14:14 Lab Results 12/04/22 12/04/22 12/04/22 Range/Units 14:14 14:14 14:14 WBC 16.7 H (3.8-10.6) k/uL RBC 4.63 (3.80-5.40) m/uL Hgb 13.8 (11.4-16.0) gm/dL Hct 42.2 (34.0-46.0) % MCV 91.1 (80.0-100.0) fL MCH 29.8 (25.0-35.0) pg MCHC 32.7 (31.0-37.0) g/dL RDW 13.2 (11.5-15.5) % Plt Count 312 (150-450) k/uL MPV 7.5 Neutrophils % 80 % Lymphocytes % 14 % Monocytes % 4 % Eosinophils % 1 % Basophils % 0 % Neutrophils # 13.3 H (1.3-7.7) k/uL Lymphocytes # 2.3 (1.0-4.8) k/uL Monocytes # 0.7 (0-1.0) k/uL Eosinophils # 0.1 (0-0.7) k/uL Basophils # 0.0 (0-0.2) k/uL Sodium 137 (137-145) mmol/L Potassium 4.0 (3.5-5.1) mmol/L Chloride 105 (98-107) mmol/L Carbon Dioxide 21 L (22-30) mmol/L Anion Gap 11 mmol/L BUN 15 (7-17) mg/dL Creatinine 1.01 (0.52-1.04) mg/dL Est GFR (CKD-EPI)AfAm 62 (>60 ml/min/1.73 sqM) Est GFR (CKD-EPI)NonAf 54 (>60 ml/min/1.73 sqM) Glucose 209 H (74-99) mg/dL Calcium 8.2 L (8.4-10.2) mg/dL Total Bilirubin 0.6 (0.2-1.3) mg/dL AST 29 (14-36) U/L ALT 21 (4-34) U/L Alkaline Phosphatase 66 (38-126) U/L Troponin I <0.012 (0.000-0.034) ng/mL Total Protein 6.2 L (6.3-8.2) g/dL Albumin 3.7 (3.5-5.0) g/dL Disposition Clinical Impression: Anaphylaxis Disposition: HOME SELF-CARE Instructions (If sedation given, give patient instructions): Anaphylaxis (ED) Additional Instructions: Patient is not to take any NSAIDs in the future Patient is to return for any difficulty breathing or swallowing. Patient is only to use the epinephrine doctor's difficulty breathing or difficulty swallowing. Patient should take the prednisone as prescribed. Patient should take Benadryl when necessary for rash or swelling Prescriptions: predniSONE [Deltasone] 40 mg PO DAILY #8 tab EPINEPHrine (Auto Inject) [Epipen] 0.3 mg IM ONCE PRN #2 each PRN Reason: Difficulty breathing Is patient prescribed a controlled substance at d/c from ED?: No Referrals: Isai Funez MD [Primary Care Provider] - 1-2 days Time of Disposition: 15:24
[2022-12-04 14:20] LABS: Basophils % (A) 0 %; Eosinophils # (A) 0.1 k/uL (0-0.7); Eosinophils % (A) 1 %; HCT 42.2 % (34.0-46.0); HGB 13.8 gm/dL (11.4-16.0); Lymphocytes # (A) 2.3 k/uL (1.0-4.8); Lymphocytes % (A) 14 %; MCH 29.8 pg (25.0-35.0); MCHC 32.7 g/dL (31.0-37.0); MCV 91.1 fL (80.0-100.0); Mean Platelet Volume 7.5; Monocytes # (A) 0.7 k/uL (0-1.0); Monocytes % (A) 4 %; Neutrophils # (A) 13.3 k/uL (1.3-7.7); Neutrophils % (A) 80 %; Platelet Count 312 k/uL (150-450); RBC 4.63 m/uL (3.80-5.40); RDW 13.2 % (11.5-15.5); WBC 16.7 k/uL (3.8-10.6)
[2022-12-04 14:30] LABS: Albumin 3.7 g/dL (3.5-5.0); Calcium 8.2 mg/dL (8.4-10.2); Total Bilirubin 0.6 mg/dL (0.2-1.3); Total Protein 6.2 g/dL (6.3-8.2)
--- NOTE | 2022-12-04 14:35 | XR ---
EXAMINATION TYPE: XR chest 2V DATE OF EXAM: 12/04/2022 COMPARISON: Chest x-ray July 21, 2019 HISTORY: Chest pain. TECHNIQUE: Frontal and lateral views of the chest are obtained. FINDINGS: There is no suspicious focal air space opacity, pleural effusion, or pneumothorax seen. T he cardiac silhouette size is stable and within normal limits. The osseous structures are intact. IMPRESSION: No acute cardiopulmonary process. No significant change from prior.
[2022-12-04 15:40] VITALS: BP 141/70; PULSE 101; TEMP 97.8
== END 2022-12-04 15:40 | disposition home or self-care (01) ==
LOC: EC 13:35
DX: T78.2XXA Anaphylactic shock, unspecified, initial encounter (principal); E07.9 Disorder of thyroid, unspecified; Z79.890 Hormone replacement therapy; Z88.8 Allergy status to other drugs, medicaments and biological substances; Z90.49 Acquired absence of other specified parts of digestive tract
CPT/HCPCS: 36415; 71046; 80053; 84484; 85025; 99284

== ENCOUNTER → 2023-01-04 | Outpatient (CLI) | payer MEDICARE ==
--- NOTE | 2023-01-05 06:59 | MM ---
Reason for Exam: Hx of breast augmentation, asymptomatic. Last mammogram was performed 1 year(s) and 1 month(s) ago. Patient History: Menarche at age 12. First Full-Term at age 24. Postmenopausal. Patient has history of breast feeding. Other cancer. 1976, Excisional Biopsy on the Left side. 1989, Bilateral Implants. Risk Values: Mea 5 year model risk: 2.3%. NCI Lifetime model risk: 4.0%. Prior Study Comparison: 12/15/2016 Screening Mammogram, Unknown. 02/07/2018 Bilateral Screening Mammogram, [facility]. 02/18/2019 Bilateral Screening Mammogram, [facility]. 03/25/2020 Bilateral Screening Mammogram, [facility]. 11/08/2021 Bilateral Screening Mammogram, [facility]. Tissue Density: There are scattered fibroglandular densities. Findings: Analyzed By CAD. Bilateral subglandular implants redemonstrated. Persistent irregular right breast implant with adjacent calcification suggests rupture is again seen. There is no suspicious new group of microcalcifications or new suspicious mass in either breast. Overall Assessment: Benign, BI-RAD 2 Management: Screening Mammogram of both breasts in 1 year. . Patient should continue monthly self-breast exams. A clinical breast exam by your physician is recommended on an annual basis. This exam should not preclude additional follow-up of suspicious palpable abnormalities. Note on Mae scores and lifetime risk: 1. A Mae score greater than 3% is considered moderate risk. If this is the case, consider specialist referral to assess eligibility for a risk reducing agent. 2. If overall lifetime risk for the development of breast cancer is 20% or higher, the patient may qualify for future screening with alternating mammogram and breast MRI. Electronically signed and approved by: Jose Deras M.D.
== END | disposition home or self-care (01) ==
LOC: RADMAMWWP 13:14
PROVIDERS: ATTEND Family Medicine
DX: Z12.31 Encounter for screening mammogram for malignant neoplasm of breast (principal); Z78.0 Asymptomatic menopausal state
CPT/HCPCS: 77063; 77067

== ENCOUNTER → 2024-04-24 | Outpatient (CLI) | payer MEDICARE ==
--- NOTE | 2024-04-25 08:27 | MM ---
Reason for Exam: Hx of breast augmentation, asymptomatic. Last mammogram was performed 1 year(s) and 4 month(s) ago. Patient History: Menarche at age 12. First Full-Term at age 24. Postmenopausal. Patient has history of breast feeding. Other cancer. 1976, Excisional Biopsy on the Left side. 1989, Bilateral Implants. Risk Values: Mae 5 year model risk: 2.2%. NCI Lifetime model risk: 3.7%. Prior Study Comparison: 12/15/2016 Screening Mammogram, Unknown. 02/07/2018 Bilateral Screening Mammogram, [facility]. 02/18/2019 Bilateral Screening Mammogram, [facility]. 03/25/2020 Bilateral Screening Mammogram, [facility]. 11/08/2021 Bilateral Screening Mammogram, [facility]. 01/04/2023 Bilateral MG screening mammo implant/CAD, [facility]. Tissue Density: The breasts are almost entirely fatty. Findings: Analyzed By CAD. Bilateral breast implants appear intact. Right breast: There is no suspicious group of microcalcifications or new suspicious mass. Benign-appearing calcifications right breast. Left breast: There is no suspicious group of microcalcifications or new suspicious mass. Overall Assessment: Benign, BI-RAD 2 Management: Screening Mammogram of both breasts in [address] [facility] will attempt to contact patient to return for supplemental views and ultrasound if indicated. Patient should continue monthly self-breast exams. A clinical breast exam by your physician is recommended on an annual basis. This exam should not preclude additional follow-up of suspicious palpable abnormalities. Note on Mae scores and lifetime risk: 1. A Mae score greater than 3% is considered moderate risk. If this is the case, consider specialist referral to assess eligibility for a risk reducing agent. 2. If overall lifetime risk for the development of breast cancer is 20% or higher, the patient may qualify for future screening with alternating mammogram and breast MRI. [facility], , 04/25/2024 8:24 AM. Electronically signed and approved by: Remi Mansfield DO
== END | disposition home or self-care (01) ==
LOC: RADMAMWWP 10:37
PROVIDERS: ATTEND Family Medicine
CPT/HCPCS: 77063; 77067

== ENCOUNTER → 2024-10-31 | Outpatient (CLI) | payer MEDICARE ==
[2024-10-31 09:19] LABS: African American GFR (CKD) 75 (>60 ml/min/1.73 sqM); Blood Urea Nitrogen 19 mg/dL (7-17); Non-African American GFR(CKD) 65 (>60 ml/min/1.73 sqM)
--- NOTE | 2024-11-01 11:23 | CT ---
EXAMINATION TYPE: CT abdomen w con DATE OF EXAM: 10/31/2024 9:55 AM COMPARISON: 06/06/2017 CLINICAL INDICATION: Female, 78 years old with history of R10.9 abdominal pain, RUQ pain on and off x 1 year TECHNIQUE: Axial images were obtained from above the diaphragm to the iliac crests in the axial plane at 5 mm thick sections. Reconstructed images are reviewed on the computer in the coronal plane. CONTRAST: 100 ml mL of Isovue 300. Study performed with Oral Contrast DLP: 1092.60 mGycm, Automated exposure control for dose reduction was used. FINDINGS: Limited CT sections are obtained the lung bases. The lung bases are clear. CT ABDOMEN: Periumbilical fat-containing hernia. No loops of bowel are involved. Couple of surgical c lips are along the anterior right upper peritoneal wall. Series 4 image 16 Liver: Normal Spleen: Normal Pancreas: Normal Adrenal glands: The adrenal glands are normal. Gallbladder: Surgically absent no suspicious fluid accumulation. Kidneys: No masses are evident. No hydronephrosis is present. No cysts are present. Delayed images were obtained through the kidneys, which remain unremarkable. Aorta: Vascular calcification is within the aorta. Inferior vena cava: Normal. Loops of bowel within the abdomen and upper pelvis are normal. There are loops of bowel which are incompletely distended or lack oral contrast limiting their evaluation. IMPRESSION: 1. No suspicious changes to account for intermittent right upper quadrant pain [facility], , 11/01/2024 11:21 AM
== END | disposition home or self-care (01) ==
LOC: RADCTMAIN 08:39
PROVIDERS: ATTEND Family Medicine
DX: K42.9 Umbilical hernia without obstruction or gangrene (principal)
CPT/HCPCS: 82565; 84520; 74160; 36415; Q9967